=== PATIENT | female | born 1935 | race Two or more races ===

== ENCOUNTER 2016-09-02 18:43 | Inpatient (IN) | payer MEDICARE, MEDICAID ==
[~2016-09-02] VITALS: Ht 157.5 cm; Wt 68.0 kg
[2016-09-02] MEDS ORDERED: ROSU10TA PO (18:59)
[2016-09-02] MEDS ORDERED: LETR2.5T7 PO (18:59)
[2016-09-02] MEDS ORDERED: LOSA100T15 PO (18:59)
[2016-09-02] MEDS ORDERED: IRON PO (18:59)
[2016-09-02] MEDS ORDERED: QUET25TA PO (18:59)
[2016-09-02] MEDS ORDERED: CARV12.52 PO (18:59)
[2016-09-02] MEDS ORDERED: DOCU100C22 PO (18:59)
[2016-09-02] MEDS ORDERED: CHLO25TA2 PO (18:59)
[2016-09-02] MEDS ORDERED: OMEP20TA5 PO (18:59)
[2016-09-02] MEDS ORDERED: MEMA10TA PO (18:59)
[2016-09-02] MEDS ORDERED: NIFE30TA2 PO (18:59)
[2016-09-02] MEDS ORDERED: METF500T4 PO (18:59)
[2016-09-02] MEDS ORDERED: PLAVIX (18:59)
[2016-09-02 19:36] LABS: *BILIRUBIN,URIN NEGATIVE (NEGATIVE); *BLOOD, URINE Trace-lysed (NEGATIVE); *CLARITY,URINE CLEAR (CLEAR); *COLOR,URINE YELLOW (YELLOW); *KETONES,URINE NEGATIVE (NEGATIVE); *PROTEIN,URINE NEGATIVE (NEGATIVE); *UROBILINOGEN,URINE 0.2 E.U./dl (NORMAL); LEUKOCYTE ESTERASE ,URINE 1+ (NEGATIVE); NITRITE, URINE POSITIVE (NEGATIVE); UGLUCOSE NEGATIVE (NEGATIVE)
[2016-09-02 19:37] LABS: BASOPHILS # (AUTO) 0.1 K/uL (0.0-8.0); BASOPHILS % (AUTO) 0.8 % (0.0-2.0); EOSINOPHILS # (AUTO) 0.3 K/uL (0.0-0.7); EOSINOPHILS % (AUTO) 3.1 % (0.0-7.0); HEMATOCRIT 39.6 % (37-47); HEMOGLOBIN 13.3 G/DL (12.0-16.0); LYMPHOCYTES % (AUTO) 33.4 % (20.5-51.5); MEAN CORPUSCULAR HEMOGLOBIN 29.5 UUG (27.0-31.0); MEAN CORPUSCULAR HGB CONC 33 g/dL (32.0-37.0); MEAN CORPUSCULAR VOLUME 88.3 FL (81.0-99.0); MONOCYTES # (AUTO) 1.2 K/UL (0.1-1.30); NEUTROPHILS # (AUTO) 4.3 K/UL (1.8-8.9); NEUTROPHILS % (AUTO) 49.7 % (38.5-71.5); PLATELET COUNT (AUTO) 238 K/UL (150-450); RED BLOOD CELL COUNT(AUTO) 4.49 MIL/UL (4.2-5.4); WHITE BLOOD COUNT (AUTO) 8.9 K/UL (4.0-11.2)
[2016-09-02 19:44] LABS: CARBON DIOXIDE 26 mmol/L (21-32); CHLORIDE 100 mmol/L (98-107); CREATININE 1.1 mg/dL (0.6-1.3); GLUCOSE 153 mg/dL (74-106); POTASSIUM 3.7 mmol/L (3.5-5.1); UREA NITROGEN, BLOOD 28 mg/dL (7-18)
[2016-09-02 19:47] LABS: ETHANOL < 3 MG/DL (0-0)
[2016-09-02 19:50] LABS: ALANINE AMINOTRANSFERASE 21 U/L (14-59); ALKALINE PHOSPHATASE 88 U/L (50-136); ASPARTATE AMINOTRANSFERASE 23 U/L (15-37); BILIRUBIN,DIRECT 0.1 mg/dL (0.0-0.2); BILIRUBIN,TOTAL 0.7 mg/dL (0.2-1.0); TOTAL PROTEIN, SERUM 7.9 g/dL (6.4-8.2)
[2016-09-02 19:53] LABS: BACTERIA,URINE NONE SEEN /HPF (NONE SEEN); RBC,URINE 0-3 /HPF (0-3); SQUAMOUS EPITHELIAL CELL,UR FEW /HPF (NONE SEEN); WBC,URINE 0-3 /HPF (0-3)
[2016-09-02 19:58] LABS: THYROID STIMULATING HORMONE 1.493 mIU/mL (0.358-3.740)
--- NOTE | 2016-09-02 20:00 | NUR ---
PATIENT CALM AND COMFORTABLE WITH OUTBURST BUT PATIENT IS REDIRECTABLE.
[2016-09-02 20:25] LABS: *AMPHETAMINE, URINE NEGATIVE (NEGATIVE); *BARBITURATE, URINE NEGATIVE (NEGATIVE); *CANNABINOID, URINE NEGATIVE (NEGATIVE); *COCCAINE, URINE NEGATIVE (NEGATIVE); *OPIATE, URINE NEGATIVE (NEGATIVE); *PHENCYCLIDINE SCREEN,URINE NEGATIVE (NEGATIVE)
--- NOTE | 2016-09-02 21:30 | NUR ---
MEDICALLY CLEARED BY DR YANEZ
--- NOTE | 2016-09-02 21:58 | NUR ---
[place] [facility] [place] [facility]
[2016-09-02] MEDS ORDERED: MAGNESIUM HYDROXIDE 30 ML LIQUID UDC PO PRN (22:00)
[2016-09-02] MEDS ORDERED: MAG HYDROX/AL HYDROX/SIMETH 30 ML LIQUID UDC PO PRN (22:00)
[2016-09-02] MEDS ORDERED: ACETAMINOPHEN 325 MG TABLET PO PRN (22:00)
[2016-09-02] MEDS ORDERED: LORAZEPAM 1 MG TABLET PO PRN (22:00)
[2016-09-02] MEDS ORDERED: CARVEDILOL 12.5 MG TABLET PO SCH (22:30)
[2016-09-02] MEDS ORDERED: DEXTROSE 50% 50 ML DISP.SYRIN IV PRN (22:45)
[2016-09-02 23:08] VITALS: BP 206/96
[2016-09-02 23:10] VITALS: BP 194/88
[2016-09-02] MEDS: ZOLPIDEM 5 MG TABLET PO PRN (23:20)
[2016-09-02] MEDS ORDERED: ZOLPIDEM 5 MG TABLET ONE (23:21)
[2016-09-02] MEDS ORDERED: CARVEDILOL 12.5 MG TABLET ONE (23:26)
[2016-09-03] MEDS: BLOOD SUGAR DIAGNOSTIC 1 EACH STRIP VI SCH ×4 (07:30→20:15)
[2016-09-03] MEDS ORDERED: METFORMIN HCL 500 MG TABLET PO SCH (08:00)
[2016-09-03] MEDS ORDERED: LETROZOLE 2.5 MG PO SCH (09:00)
[2016-09-03] MEDS ORDERED: Medication Not On Formulary EA (Rosuvastatin Calcium (Crestor) 1 TAB) PO SCH (09:00)
[2016-09-03] MEDS: DOCUSATE SODIUM 100 MG CAPSULE PO SCH ×2 (10:52→17:03)
[2016-09-03] MEDS: FERROUS SULFATE 325 MG TABEC PO SCH (10:53)
[2016-09-03] MEDS: CLOPIDOGREL 75 MG TABLET PO SCH (10:53)
[2016-09-03] MEDS: CARVEDILOL 12.5 MG TABLET PO SCH ×2 (10:53→17:04)
[2016-09-03] MEDS: LOSARTAN POTASSIUM 50 MG TABLET PO SCH (10:54)
[2016-09-03] MEDS: CHLORTHALIDONE 25 MG TABLET PO SCH (10:56)
[2016-09-03] MEDS: NITROFURANTOIN/NITROFURAN MAC 100 MG CAPSULE PO SCH ×2 (10:56→20:08)
[2016-09-03] MEDS: INSULIN REGULAR, HUMAN 300 UNIT/3 ML VIAL SQ PRN ×4 (10:56→20:40)
[2016-09-03] MEDS: glipiZIDE 5 MG TABLET PO SCH ×2 (10:58→17:12)
--- NOTE | 2016-09-03 11:57 | NUR ---
gps rn 1130: [id number], 3 UNITS OF HUMULIN R GIVEN ORDERED.
[2016-09-03 15:00] VITALS: BP 142/78
[2016-09-03] MEDS: NIFEdipine XL 30 MG TABSR PO SCH (16:44)
[2016-09-03] MEDS: DIVALPROEX SPRINKLE 125 MG CAP.SPRINK PO SCH (17:02)
[2016-09-03] MEDS: METFORMIN HCL 500 MG TABLET PO SCH (17:03)
[2016-09-03] MEDS: LETROZOLE 2.5 MG PO SCH (17:25)
[2016-09-03] MEDS: QUETIAPINE FUMARATE 25 MG TABLET PO SCH (20:08)
[2016-09-03] MEDS: MEMANTINE HCL 10 MG TABLET PO SCH (20:08)
[2016-09-03] MEDS: ATORVASTATIN 20 MG TABLET PO SCH (20:08)
[2016-09-03 20:20] VITALS: BP 113/62
--- NOTE | 2016-09-03 22:52 | NUR ---
PATIENT RECEIVED IN BED AWAKE. PATIENT REMAINS WITH A 1:1 SITTER FOR SAFETY. PATIENT IS CHINESE SPEAKING. PATIENT COOPERATIVE, PLEASANT UPON APPROACH. PATIENT APPEARS DEPRESSED, FLAT AFFECT. PATIENT IS EASILY AGITATED. IS REDIRECTABLE. PATIENT COMPLAINT WITH MEDICATION. ACCUCHECK 132 MG/DL COVERAGE GIVEN ORDERED. BED IN LOWEST POSITION, BED LOCKED AND BED ALARM ON WHILE IN BED. NO AGGRESSIVE OR COMBATIVE BEHAVIOR WILL CONTINUE TO MONITOR.
[2016-09-04] MEDS: BLOOD SUGAR DIAGNOSTIC 1 EACH STRIP VI SCH ×4 (06:38→21:17)
[2016-09-04 07:30] VITALS: BP 150/71
[2016-09-04] MEDS: CHLORTHALIDONE 25 MG TABLET PO SCH (08:32)
[2016-09-04] MEDS: QUETIAPINE FUMARATE 25 MG TABLET PO SCH ×2 (08:32→21:04)
[2016-09-04] MEDS: METFORMIN HCL 500 MG TABLET PO SCH ×2 (08:32→17:05)
[2016-09-04] MEDS: MEMANTINE HCL 10 MG TABLET PO SCH ×2 (08:32→21:04)
[2016-09-04] MEDS: DOCUSATE SODIUM 100 MG CAPSULE PO SCH ×2 (08:32→16:30)
[2016-09-04] MEDS: FERROUS SULFATE 325 MG TABEC PO SCH (08:32)
[2016-09-04] MEDS: DIVALPROEX SPRINKLE 125 MG CAP.SPRINK PO SCH ×2 (08:32→16:30)
[2016-09-04] MEDS: NITROFURANTOIN/NITROFURAN MAC 100 MG CAPSULE PO SCH ×2 (08:32→21:04)
[2016-09-04] MEDS: NIFEdipine XL 30 MG TABSR PO SCH (08:33)
[2016-09-04] MEDS: CARVEDILOL 12.5 MG TABLET PO SCH ×2 (08:33→17:05)
[2016-09-04] MEDS: glipiZIDE 5 MG TABLET PO SCH ×2 (08:33→16:30)
[2016-09-04] MEDS: CLOPIDOGREL 75 MG TABLET PO SCH (08:33)
[2016-09-04] MEDS: LOSARTAN POTASSIUM 50 MG TABLET PO SCH (08:33)
[2016-09-04] MEDS: LETROZOLE 2.5 MG PO SCH (08:35)
[2016-09-04 15:31] VITALS: BP 130/58
[2016-09-04] MEDS: INSULIN REGULAR, HUMAN 300 UNIT/3 ML VIAL SQ PRN (17:02)
[2016-09-04 20:00] VITALS: BP 142/64
[2016-09-04] MEDS: ATORVASTATIN 20 MG TABLET PO SCH (21:04)
[2016-09-04] MEDS: ZOLPIDEM 5 MG TABLET PO PRN (22:03)
[2016-09-05] MEDS: BLOOD SUGAR DIAGNOSTIC 1 EACH STRIP VI SCH ×4 (06:30→20:44)
[2016-09-05] MEDS: glipiZIDE 5 MG TABLET PO SCH ×2 (06:31→16:23)
[2016-09-05 07:30] VITALS: BP 169/76
[2016-09-05] MEDS: CYANOCOBALAMIN 1,000 MCG TABLET PO SCH (08:09)
[2016-09-05] MEDS: DOCUSATE SODIUM 100 MG CAPSULE PO SCH ×2 (08:09→16:22)
[2016-09-05] MEDS: QUETIAPINE FUMARATE 25 MG TABLET PO SCH ×3 (08:09→20:28)
[2016-09-05] MEDS: NITROFURANTOIN/NITROFURAN MAC 100 MG CAPSULE PO SCH (08:09)
[2016-09-05] MEDS: CHLORTHALIDONE 25 MG TABLET PO SCH (08:09)
[2016-09-05] MEDS: FERROUS SULFATE 325 MG TABEC PO SCH (08:10)
[2016-09-05] MEDS: CLOPIDOGREL 75 MG TABLET PO SCH (08:11)
[2016-09-05] MEDS: METFORMIN HCL 500 MG TABLET PO SCH ×2 (08:11→17:02)
[2016-09-05] MEDS: DIVALPROEX SPRINKLE 125 MG CAP.SPRINK PO SCH ×2 (08:11→16:23)
[2016-09-05] MEDS: MEMANTINE HCL 10 MG TABLET PO SCH ×2 (08:12→20:28)
[2016-09-05] MEDS: LOSARTAN POTASSIUM 50 MG TABLET PO SCH (08:12)
[2016-09-05] MEDS: CARVEDILOL 12.5 MG TABLET PO SCH ×2 (08:12→17:03)
[2016-09-05] MEDS: NIFEdipine XL 30 MG TABSR PO SCH (08:12)
[2016-09-05] MEDS: LETROZOLE 2.5 MG PO SCH (08:13)
[2016-09-05] MEDS: INSULIN REGULAR, HUMAN 300 UNIT/3 ML VIAL SQ PRN ×2 (11:59→22:31)
--- NOTE | 2016-09-05 16:21 | NUR ---
Initial discharge instructions: The patient resides at her prison apartment [[id number] [place] [address]; ] independently. Spoke with the patient's granddaughter who stated that she is considering placing the patient in a short term SNF. SW will speak with patient, family, and MD regarding most appropriate discharge plan. SS will form a safe and proper discharge.
[2016-09-05 16:44] VITALS: BP 103/50
[2016-09-05 20:00] VITALS: BP 136/62
[2016-09-05] MEDS: ATORVASTATIN 20 MG TABLET PO SCH (20:28)
--- NOTE | 2016-09-05 22:32 | NUR ---
GPS/RN- INSULIN COVERAGE HELD AT . PATIENT DID NOT WANT SNACK JUST TO SLEEP. NO COVERAGE PROVIDED SINCE PATIENT DID NOT HAVE SNACK TO PREVENT HYPOGLYCEMIA CONTINUE TO MONITOR
--- NOTE | 2016-09-06 02:03 | NUR ---
GPS.RN- PATIENT SLEEPING IN BED SITTER AT BEDSIDE FOR SAFETY. NO DISTRESS CONTINUE TO MONITOR
[2016-09-06] MEDS: BLOOD SUGAR DIAGNOSTIC 1 EACH STRIP VI SCH ×4 (06:34→20:22)
[2016-09-06 07:45] VITALS: BP 158/69
[2016-09-06] MEDS: CARVEDILOL 12.5 MG TABLET PO SCH ×2 (08:00→17:40)
[2016-09-06] MEDS: NIFEdipine XL 30 MG TABSR PO SCH (09:00)
[2016-09-06] MEDS: QUETIAPINE FUMARATE 25 MG TABLET PO SCH ×3 (09:00→20:54)
[2016-09-06] MEDS: LETROZOLE 2.5 MG PO SCH (09:28)
[2016-09-06] MEDS: LOSARTAN POTASSIUM 50 MG TABLET PO SCH (09:29)
[2016-09-06] MEDS: CHLORTHALIDONE 25 MG TABLET PO SCH (09:29)
[2016-09-06] MEDS: CYANOCOBALAMIN 1,000 MCG TABLET PO SCH (09:30)
[2016-09-06] MEDS: FERROUS SULFATE 325 MG TABEC PO SCH (09:30)
[2016-09-06] MEDS: METFORMIN HCL 500 MG TABLET PO SCH ×2 (09:32→17:41)
[2016-09-06] MEDS: glipiZIDE 5 MG TABLET PO SCH ×2 (09:32→17:37)
[2016-09-06] MEDS: DOCUSATE SODIUM 100 MG CAPSULE PO SCH ×2 (09:32→17:41)
[2016-09-06] MEDS: DIVALPROEX SPRINKLE 125 MG CAP.SPRINK PO SCH ×4 (09:33→17:46)
[2016-09-06] MEDS: MEMANTINE HCL 10 MG TABLET PO SCH ×2 (09:33→20:54)
[2016-09-06] MEDS: CLOPIDOGREL 75 MG TABLET PO SCH (09:33)
[2016-09-06] MEDS: INSULIN REGULAR, HUMAN 300 UNIT/3 ML VIAL SQ PRN (12:47)
[2016-09-06 15:44] VITALS: BP 156/74
--- NOTE | 2016-09-06 18:23 | NUR ---
patient remains difficult to manage with routine s ie, meds , accucheck and unit compliance . continue to monitor safety
[2016-09-06 20:24] VITALS: BP 151/68
[2016-09-06] MEDS: ATORVASTATIN 20 MG TABLET PO SCH (20:54)
[2016-09-07] MEDS: BLOOD SUGAR DIAGNOSTIC 1 EACH STRIP VI SCH ×4 (07:12→21:45)
[2016-09-07 07:30] VITALS: BP 189/95
[2016-09-07] MEDS: DOCUSATE SODIUM 100 MG CAPSULE PO SCH ×2 (08:10→17:14)
[2016-09-07] MEDS: QUETIAPINE FUMARATE 25 MG TABLET PO SCH ×3 (08:10→21:03)
[2016-09-07] MEDS: METFORMIN HCL 500 MG TABLET PO SCH ×2 (08:10→17:14)
[2016-09-07] MEDS: NIFEdipine XL 30 MG TABSR PO SCH (08:10)
[2016-09-07] MEDS: FERROUS SULFATE 325 MG TABEC PO SCH (08:10)
[2016-09-07] MEDS: DIVALPROEX SPRINKLE 125 MG CAP.SPRINK PO SCH ×3 (08:11→17:13)
[2016-09-07] MEDS: CLOPIDOGREL 75 MG TABLET PO SCH (08:11)
[2016-09-07] MEDS: CARVEDILOL 12.5 MG TABLET PO SCH ×2 (08:11→17:14)
[2016-09-07] MEDS: LOSARTAN POTASSIUM 50 MG TABLET PO SCH (08:11)
[2016-09-07] MEDS: MEMANTINE HCL 10 MG TABLET PO SCH ×2 (08:11→21:03)
[2016-09-07] MEDS: glipiZIDE 5 MG TABLET PO SCH ×2 (08:11→17:14)
[2016-09-07] MEDS: CYANOCOBALAMIN 1,000 MCG TABLET PO SCH (08:11)
[2016-09-07] MEDS: CHLORTHALIDONE 25 MG TABLET PO SCH (08:12)
[2016-09-07] MEDS: LETROZOLE 2.5 MG PO SCH (08:37)
[2016-09-07 12:08] VITALS: BP 151/69
[2016-09-07] MEDS: INSULIN REGULAR, HUMAN 300 UNIT/3 ML VIAL SQ PRN ×2 (12:28→17:10)
[2016-09-07 15:34] VITALS: BP 154/66
[2016-09-07 20:21] VITALS: BP 152/65
[2016-09-07] MEDS: ATORVASTATIN 20 MG TABLET PO SCH (21:03)
--- NOTE | 2016-09-07 22:30 | NUR ---
Routine night meds given. Night accucheck showed 100. Patient refused night snacks. Kept comfortable.
--- NOTE | 2016-09-08 06:56 | NUR ---
Patient awake, slept 9 hours. Morning accucheck showed 66. Patient is asymptomatic, alert & oriented. [place] juice provided. Will re-check blood sugar in 20 mins. Endorse to day shift assigned nurse.
[2016-09-08] MEDS: BLOOD SUGAR DIAGNOSTIC 1 EACH STRIP VI SCH ×4 (07:25→20:28)
[2016-09-08 07:30] VITALS: BP 161/74
[2016-09-08] MEDS: NIFEdipine XL 30 MG TABSR PO SCH (08:49)
[2016-09-08] MEDS: METFORMIN HCL 500 MG TABLET PO SCH ×2 (08:49→17:13)
[2016-09-08] MEDS: FERROUS SULFATE 325 MG TABEC PO SCH (08:50)
[2016-09-08] MEDS: LOSARTAN POTASSIUM 50 MG TABLET PO SCH (08:50)
[2016-09-08] MEDS: MEMANTINE HCL 10 MG TABLET PO SCH ×2 (08:50→20:34)
[2016-09-08] MEDS: CYANOCOBALAMIN 1,000 MCG TABLET PO SCH (08:50)
[2016-09-08] MEDS: DOCUSATE SODIUM 100 MG CAPSULE PO SCH ×2 (08:51→17:11)
[2016-09-08] MEDS: CLOPIDOGREL 75 MG TABLET PO SCH (08:51)
[2016-09-08] MEDS: QUETIAPINE FUMARATE 25 MG TABLET PO SCH ×4 (08:51→20:34)
[2016-09-08] MEDS: CARVEDILOL 12.5 MG TABLET PO SCH ×2 (08:51→17:13)
[2016-09-08] MEDS: glipiZIDE 5 MG TABLET PO SCH ×2 (08:57→17:14)
[2016-09-08] MEDS: CHLORTHALIDONE 25 MG TABLET PO SCH (08:58)
[2016-09-08] MEDS: LETROZOLE 2.5 MG PO SCH (08:58)
[2016-09-08] MEDS: DIVALPROEX SPRINKLE 125 MG CAP.SPRINK PO SCH ×3 (08:58→17:11)
[2016-09-08 15:56] VITALS: BP 154/71
[2016-09-08 20:00] VITALS: BP 127/72
[2016-09-08] MEDS: INSULIN REGULAR, HUMAN 300 UNIT/3 ML VIAL SQ PRN (20:28)
[2016-09-08] MEDS: ATORVASTATIN 20 MG TABLET PO SCH (20:34)
[2016-09-08 23:18] VITALS: BP 127/62
[2016-09-09] MEDS: BLOOD SUGAR DIAGNOSTIC 1 EACH STRIP VI SCH ×4 (06:30→20:49)
[2016-09-09 07:30] VITALS: BP 171/78
--- NOTE | 2016-09-09 07:44 | NUR ---
GPS/RN- patient received awake and alert up in bed pleasant on approach.continue to monitor
--- NOTE | 2016-09-09 08:53 | NUR ---
GPS/RN- Patient remains isolative and withdrawn. patient denies any delusions this morning. patient less angry and irritable this am towards her family, she believes she does need to be here.
[2016-09-09] MEDS: LOSARTAN POTASSIUM 50 MG TABLET PO SCH (09:14)
[2016-09-09] MEDS: CLOPIDOGREL 75 MG TABLET PO SCH (09:15)
[2016-09-09] MEDS: NIFEdipine XL 30 MG TABSR PO SCH (09:15)
[2016-09-09] MEDS: CYANOCOBALAMIN 1,000 MCG TABLET PO SCH (09:15)
[2016-09-09] MEDS: QUETIAPINE FUMARATE 25 MG TABLET PO SCH ×4 (09:15→20:22)
[2016-09-09] MEDS: glipiZIDE 5 MG TABLET PO SCH ×2 (09:15→16:30)
[2016-09-09] MEDS: DOCUSATE SODIUM 100 MG CAPSULE PO SCH ×2 (09:15→17:38)
[2016-09-09] MEDS: FERROUS SULFATE 325 MG TABEC PO SCH (09:15)
[2016-09-09] MEDS: CARVEDILOL 12.5 MG TABLET PO SCH ×2 (09:16→17:38)
[2016-09-09] MEDS: DIVALPROEX SPRINKLE 125 MG CAP.SPRINK PO SCH ×3 (09:16→17:39)
[2016-09-09] MEDS: METFORMIN HCL 500 MG TABLET PO SCH ×2 (09:16→17:38)
[2016-09-09] MEDS: MEMANTINE HCL 10 MG TABLET PO SCH ×2 (09:16→20:22)
[2016-09-09] MEDS: CHLORTHALIDONE 25 MG TABLET PO SCH (09:17)
[2016-09-09] MEDS: INSULIN REGULAR, HUMAN 300 UNIT/3 ML VIAL SQ PRN ×2 (12:13→20:50)
[2016-09-09] MEDS: LETROZOLE 2.5 MG PO SCH (15:10)
[2016-09-09 16:00] VITALS: BP 168/65
[2016-09-09 20:00] VITALS: BP 111/61
[2016-09-09] MEDS: ATORVASTATIN 20 MG TABLET PO SCH (20:22)
--- NOTE | 2016-09-10 06:10 | NUR ---
GPS: REMAIN CALM AND COOPERATIVE. COMPLIANT WITH MEDS. REFUSED INSULIN AT 2100 PM LAST NIGHT.SLEPT 8 HRS THROUGH THE NIGHT.CONTINUE PLAN OF CARE.
[2016-09-10] MEDS: BLOOD SUGAR DIAGNOSTIC 1 EACH STRIP VI SCH ×4 (06:21→20:18)
[2016-09-10 07:30] VITALS: BP 118/59
[2016-09-10] MEDS: FERROUS SULFATE 325 MG TABEC PO SCH (08:50)
[2016-09-10] MEDS: DOCUSATE SODIUM 100 MG CAPSULE PO SCH ×2 (08:50→17:05)
[2016-09-10] MEDS: CLOPIDOGREL 75 MG TABLET PO SCH (08:50)
[2016-09-10] MEDS: MEMANTINE HCL 10 MG TABLET PO SCH ×2 (08:50→20:09)
[2016-09-10] MEDS: DIVALPROEX SPRINKLE 125 MG CAP.SPRINK PO SCH ×3 (08:50→17:05)
[2016-09-10] MEDS: CYANOCOBALAMIN 1,000 MCG TABLET PO SCH (08:50)
[2016-09-10] MEDS: CHLORTHALIDONE 25 MG TABLET PO SCH (08:51)
[2016-09-10] MEDS: QUETIAPINE FUMARATE 25 MG TABLET PO SCH ×4 (08:51→20:08)
[2016-09-10] MEDS: METFORMIN HCL 500 MG TABLET PO SCH ×2 (08:51→17:05)
[2016-09-10] MEDS: glipiZIDE 5 MG TABLET PO SCH ×2 (08:58→17:06)
[2016-09-10 09:50] VITALS: BP 168/75
[2016-09-10] MEDS: NIFEdipine XL 30 MG TABSR PO SCH (09:51)
[2016-09-10] MEDS: LOSARTAN POTASSIUM 50 MG TABLET PO SCH (09:52)
[2016-09-10] MEDS: CARVEDILOL 12.5 MG TABLET PO SCH ×2 (09:52→17:06)
[2016-09-10] MEDS: LETROZOLE 2.5 MG PO SCH (10:21)
[2016-09-10 16:00] VITALS: BP 133/64
[2016-09-10] MEDS: AMLODIPINE 5 MG TABLET PO SCH (17:06)
[2016-09-10] MEDS: ATORVASTATIN 20 MG TABLET PO SCH (20:08)
[2016-09-10 20:15] VITALS: BP 135/60
--- NOTE | 2016-09-11 06:31 | NUR ---
GPS: REMAIN CALM AND COOPERATIVE.SLEPT 07:30 HRS THROUGH THE NIGHT.CONTINUE PLAN PF CARE.
[2016-09-11] MEDS: BLOOD SUGAR DIAGNOSTIC 1 EACH STRIP VI SCH ×4 (06:51→21:45)
[2016-09-11 07:30] VITALS: BP 143/80
[2016-09-11] MEDS: CYANOCOBALAMIN 1,000 MCG TABLET PO SCH (08:28)
[2016-09-11] MEDS: FERROUS SULFATE 325 MG TABEC PO SCH (08:28)
[2016-09-11] MEDS: DOCUSATE SODIUM 100 MG CAPSULE PO SCH ×2 (08:28→17:45)
[2016-09-11] MEDS: glipiZIDE 5 MG TABLET PO SCH ×2 (08:29→17:45)
[2016-09-11] MEDS: DIVALPROEX SPRINKLE 125 MG CAP.SPRINK PO SCH ×3 (08:30→17:46)
[2016-09-11] MEDS: CLOPIDOGREL 75 MG TABLET PO SCH (08:30)
[2016-09-11] MEDS: CARVEDILOL 12.5 MG TABLET PO SCH ×2 (08:31→17:47)
[2016-09-11] MEDS: METFORMIN HCL 500 MG TABLET PO SCH ×2 (08:31→17:45)
[2016-09-11] MEDS: NIFEdipine XL 30 MG TABSR PO SCH (08:31)
[2016-09-11] MEDS: AMLODIPINE 5 MG TABLET PO SCH (08:32)
[2016-09-11] MEDS: MEMANTINE HCL 10 MG TABLET PO SCH ×2 (08:32→20:51)
[2016-09-11] MEDS: QUETIAPINE FUMARATE 25 MG TABLET PO SCH ×4 (08:32→20:52)
[2016-09-11] MEDS: CHLORTHALIDONE 25 MG TABLET PO SCH (08:33)
[2016-09-11] MEDS: LETROZOLE 2.5 MG PO SCH (08:33)
[2016-09-11] MEDS: LOSARTAN POTASSIUM 50 MG TABLET PO SCH (08:34)
[2016-09-11 16:00] VITALS: BP 148/74
[2016-09-11] MEDS: ATORVASTATIN 20 MG TABLET PO SCH (20:51)
[2016-09-11 22:43] VITALS: BP 137/63
[2016-09-12] MEDS: BLOOD SUGAR DIAGNOSTIC 1 EACH STRIP VI SCH ×4 (07:17→20:06)
[2016-09-12 07:30] VITALS: BP 160/68
[2016-09-12] MEDS: glipiZIDE 5 MG TABLET PO SCH ×2 (07:30→17:04)
--- NOTE | 2016-09-12 07:41 | NUR ---
0700 Accu check 38, rechecked 704 43 Pt. awake/alert, asymtomatic. Pt. calm and cooperative OJ,PUDDING GIVEN. 719 Notified ZAFAR Dennis of Accu-check 38 and 43 at 0700 and snack given. TO received to notifiy Marcie if BS does not improve after snack. 737 accu-check rechecked 107 Pt. ambulated to BR indep. gait slow and steady in good spirits. No distress noted. Notified MAMI Lester AND DANIELA Martines. Addendum: 09/12/16 at 0752 by BRYCE FINLEY LVN Notified MAMI Lester AND DANIELA Martines of 737 BS 107 and DANIELA Dennis TO to notify if snack does not improve blood sugar.
[2016-09-12] MEDS: METFORMIN HCL 500 MG TABLET PO SCH ×2 (08:00→17:04)
[2016-09-12] MEDS: LETROZOLE 2.5 MG PO SCH (08:37)
[2016-09-12] MEDS: CHLORTHALIDONE 25 MG TABLET PO SCH (08:37)
[2016-09-12] MEDS: CYANOCOBALAMIN 1,000 MCG TABLET PO SCH (08:38)
[2016-09-12] MEDS: DIVALPROEX SPRINKLE 125 MG CAP.SPRINK PO SCH ×3 (08:38→17:04)
[2016-09-12] MEDS: NIFEdipine XL 30 MG TABSR PO SCH (08:38)
[2016-09-12] MEDS: FERROUS SULFATE 325 MG TABEC PO SCH (08:39)
[2016-09-12] MEDS: MEMANTINE HCL 10 MG TABLET PO SCH ×2 (08:40→20:01)
[2016-09-12] MEDS: AMLODIPINE 5 MG TABLET PO SCH (08:40)
[2016-09-12] MEDS: DOCUSATE SODIUM 100 MG CAPSULE PO SCH ×2 (08:40→17:04)
[2016-09-12] MEDS: QUETIAPINE FUMARATE 25 MG TABLET PO SCH ×4 (08:40→20:01)
[2016-09-12] MEDS: CLOPIDOGREL 75 MG TABLET PO SCH (08:41)
[2016-09-12] MEDS: LOSARTAN POTASSIUM 50 MG TABLET PO SCH (08:41)
[2016-09-12] MEDS: CARVEDILOL 12.5 MG TABLET PO SCH ×2 (08:41→17:05)
[2016-09-12 16:14] VITALS: BP 115/69
[2016-09-12] MEDS: ATORVASTATIN 20 MG TABLET PO SCH (20:01)
[2016-09-12 20:24] VITALS: BP 103/60
[2016-09-13] MEDS: BLOOD SUGAR DIAGNOSTIC 1 EACH STRIP VI SCH ×3 (06:08→16:30)
[2016-09-13 07:30] VITALS: BP 111/57
[2016-09-13] MEDS: MEMANTINE HCL 10 MG TABLET PO SCH (09:33)
[2016-09-13] MEDS: glipiZIDE 5 MG TABLET PO SCH (09:33)
[2016-09-13] MEDS: CLOPIDOGREL 75 MG TABLET PO SCH (09:33)
[2016-09-13] MEDS: METFORMIN HCL 500 MG TABLET PO SCH (09:33)
[2016-09-13] MEDS: DIVALPROEX SPRINKLE 125 MG CAP.SPRINK PO SCH ×2 (09:34→13:34)
[2016-09-13] MEDS: AMLODIPINE 5 MG TABLET PO SCH (09:34)
[2016-09-13] MEDS: DOCUSATE SODIUM 100 MG CAPSULE PO SCH (09:35)
[2016-09-13] MEDS: NIFEdipine XL 30 MG TABSR PO SCH (09:35)
[2016-09-13] MEDS: CHLORTHALIDONE 25 MG TABLET PO SCH (09:35)
[2016-09-13] MEDS: FERROUS SULFATE 325 MG TABEC PO SCH (09:36)
[2016-09-13] MEDS: LOSARTAN POTASSIUM 50 MG TABLET PO SCH (09:36)
[2016-09-13] MEDS: CYANOCOBALAMIN 1,000 MCG TABLET PO SCH (09:37)
[2016-09-13] MEDS: QUETIAPINE FUMARATE 25 MG TABLET PO SCH ×2 (09:37→13:35)
[2016-09-13] MEDS: CARVEDILOL 12.5 MG TABLET PO SCH (09:37)
[2016-09-13] MEDS: LETROZOLE 2.5 MG PO SCH (09:38)
--- NOTE | 2016-09-13 10:29 | NUR ---
DC Note: Patient will be discharged today back to her alf apartment [[address] [place] [address]; [phone]] via private transportation at 3:00 pm. Patient will be picked up by her granddaughter, Sabina Graff [phone]. Patient refused placement although this was offered. Spoke with Sabina who is aware and agreeable with discharge plans. Patient is aware and agreeable with discharge plans. Patient will follow-up with ([facility]) [[address], [place] [address]; ] and (Psychiatrist) [[address], [place] [address]; ].
--- NOTE | 2016-09-13 16:47 | NUR ---
GPS: Nursing Notes: Discharge Notes: Patient is awake and responding to her name, cooperative and pleasant with nursing care, compliant with her medications, denies any SI/HI, denies any AH/VH, denies any pain or discomfort, denies any SOB, prescriptions and instructions given to her granddaughter, took all her belongings with her, transported to [facility] [[address], [place] [address] ] via private vehicle by Sabina Graff [granddaughter] . Patient refused placement although this was offered. Spoke with Sabina who is aware and agreeable with discharge plans. Patient is aware and agreeable with discharge plans. Patient will follow-up with (Ac[facility] S[facility]er) [[address], [place] [address]; ] and (Psychiatrist) [[address], [place] [address]; ].
[2016-09-13 16:52] VITALS: BP 115/60
== END 2016-09-13 16:45 | disposition home or self-care (01) | DRG 885 ==
LOC: ER 18:45 → GPS 21:41
PROVIDERS: ADMIT Psychiatry & Neurology Psychiatry; ATTEND Psychiatry & Neurology Psychiatry
DX: F31.64 Bipolar disorder, current episode mixed, severe, with psychotic features (principal); E11.65 Type 2 diabetes mellitus with hyperglycemia; F03.91 Unspecified dementia, unspecified severity, with behavioral disturbance; N39.0 Urinary tract infection, site not specified; F29 Unspecified psychosis not due to a substance or known physiological condition; F31.9 Bipolar disorder, unspecified; I10 Essential (primary) hypertension; Z95.0 Presence of cardiac pacemaker; I50.9 Heart failure, unspecified; I51.7 Cardiomegaly; E86.0 Dehydration; I49.9 Cardiac arrhythmia, unspecified; Z85.3 Personal history of malignant neoplasm of breast; Z90.49 Acquired absence of other specified parts of digestive tract; R32 Unspecified urinary incontinence
CPT/HCPCS: 36415; 70450; 71010; 80164; 80307; 84443; 85025; 85730; 93005; A4663; G0480; J1815; J3490